=== PATIENT | female | born 1975 | race Two or more races ===

== ENCOUNTER 2017-06-28 17:25 | Emergency (ER) | payer OTHER ==
[~2017-06-28] VITALS: Ht 157.5 cm; Wt 63.5 kg
[2017-06-28 17:51] VITALS: BP 164/91
[2017-06-28] MEDS ORDERED: Bacitracin Oint UD TOPIC ONE (19:00)
--- NOTE | 2017-06-28 19:01 | Emergency Room Report ---
History of Present Illness General Chief Complaint: Skin Rash/Abscess Source: Patient Present Illness HPI 42-year-old female patient presents the ER complaining of infection on the top of her scalp. Patient reports that she had a small cut on her head that she picked at. Patient reports pus. Patient reports that it became more inflamed after she dyed her hair. Patient also states she has a bruise on her chin and she has been picking at wound. Patient reports that she hit her chin. Patient denies hitting Her head. Patient denies loss consciousness. Patient denies fever, shortness of breath. Patient reports she is up standing on vaccinations. Allergies: Coded Allergies: No Known Allergies (Unverified , 06/28/17) Patient History Past Medical History: see triage record Last Menstrual Period: 06/22/17 Reviewed Nursing Documentation: PMH: Agreed; PSxH: Agreed Nursing Documentation-PMH Past Medical History: No Stated History Review of Systems All Other Systems: negative except mentioned in HPI Physical Exam Vital Signs Date Time Temp Pulse Resp B/P (MAP) Pulse Ox O2 Delivery O2 Flow Rate FiO2 06/28/17 17:39 98.2 105 18 164/91 97 Room Air 98.2 Sp02 EP Interpretation: reviewed, normal General Appearance: well appearing, no apparent distress, alert, GCS 15, non- toxic Head: normocephalic, atraumatic, other - posterior scalp: 2-3 cm area of infection, erythema, open wound, TTP Eyes: bilateral eye normal inspection, bilateral eye PERRL ENT: hearing grossly normal, normal pharynx, no angioedema, normal voice, uvula midline, moist mucus membranes Neck: full range of motion Respiratory: lungs clear, normal breath sounds, no rhonchi, no respiratory distress, no accessory muscle use, no wheezing, speaking full sentences Cardiovascular #1: regular rate, rhythm, no edema Musculoskeletal: back normal, digits/nails normal, gait/station normal, normal range of motion, non-tender Psychiatric: mood/affect normal Skin: other - chin: 1-2cm area of hyperpigmentation, no active draining or bleeding, no ulceration Medical Decision Making PA Attestation Dr. Day is my supervising Physician whom patient management has been discussed with. Diagnostic Impression: Primary Impression: Skin infection Additional Impression: Rash and other nonspecific skin eruption ER Course Pt. presents to the ED c/o scalp infection and chin abrasion. Ddx considered but are not limited to rash, cellulitis, abscess, atopic dermatitis, scar. Low suspicion for ICH or fracture, patient speaking without difficulty, no imaging required at this time. Vital signs: are WNL, pt. is afebrile ER COURSE: Scalp wound likely infected. Scalp wound cleaned, Bacitracin applied, dressed. Patient instructed on wound care. Keep wound clean, avoid using dye or other chemicals in hair. Provide pt with abx. Chin wound possibly due to scarring from "picking at" wound. Do not scratch or pick at wound. Neosporin to help minimize appearance of scar. Followup with PCP, discuss referral to derm. Patient seen and evaluated by Dr. Day, agrees with treatment and plan. DISCHARGE: -Rx provided for Keflex -Rx provided for Tylenol At this time pt. is stable for d/c to home. Patient resting comfortably in no acute distress, nontoxic appearing. Will provide printed patient care instructions, and any necessary prescriptions. Patient instructed to complete current course of antibiotics. Care plan and follow up instructions have been discussed with the patient prior to discharge. Patient instructed to follow-up with primary care provider in 3 - 5 days and discuss further referral to draw operator. Patient questions asked and answered. ER precautions given. Patient instructed to return to ER immediately for any new or worsening of symptoms including but not limited to increasing SOB, persistent fever, intractable vomiting, calf pain. - Please note that this Emergency Department Report was dictated using [employer] attendant technology software, occasionally this can lead to erroneous entry secondary to interpretation by the dictation equipment. Last Vital Signs Date Time Temp Pulse Resp B/P (MAP) Pulse Ox O2 Delivery O2 Flow Rate FiO2 06/28/17 17:51 98.2 18 164/91 97 Room Air 98.2 06/28/17 17:39 105 Disposition: HOME, SELF-CARE Condition: Stable Scripts Acetaminophen* (TYLENOL EXTRA STRENGTH*) 500 Mg Tablet 500 MG ORAL Q8H PRN for Prn Headache/Temp > 101, #30 TAB 0 Refills Prov: Carlos Alberto Power P.A. 06/28/17 Cephalexin* (KEFLEX*) 500 Mg Capsule 500 MG ORAL EVERY 12 HOURS, #14 CAP 0 Refills Prov: Carlos Alberto Power P.A. 06/28/17 Patient Instructions: Cellulitis, [id number], Wound Care Additional Instructions: Followup with primary care provider in 2-3 days for wound check. Take medications as directed. Patient questions asked and answered. ER precautions given, patient instructed to return to ER immediately for any new or worsening of symptoms. Carlos Alberto Power June 28, 2017 19:01
[2017-06-28] MEDS ORDERED: CEPHALEXIN500 MG ORAL (19:12)
[2017-06-28] MEDS ORDERED: TYLENOL EXTRA500 MG ORAL (19:12)
[2017-06-28 19:28] VITALS: BP 164/91
== END 2017-06-28 19:29 | disposition home or self-care (01) ==
LOC: EMR 18:17
DX: L08.9 Local infection of the skin and subcutaneous tissue, unspecified (principal); R21 Rash and other nonspecific skin eruption
CPT/HCPCS: 99284